=== PATIENT | male | born 1945 | race Caucasian/White ===

== ENCOUNTER → 2021-04-25 | Outpatient (CLI) | payer MEDICARE, OTHER ==
[2021-04-25 17:33] LABS: HEMOGLOBIN 13.3 gm/dl (14.0-17.5); RED BLOOD COUNT 4.52 M/UL (4.20-5.50); WHITE BLOOD COUNT 7.4 K/UL (4.5-11.0)
[2021-04-25 17:51] LABS: BUN/CREATININE RATIO 23 (0-10)
== END ==
LOC: LAB 16:27
PROVIDERS: Nurse Practitioner Family
DX: R05.3 Chronic cough (principal); R09.1 Pleurisy; E05.30 Thyrotoxicosis from ectopic thyroid tissue without thyrotoxic crisis or storm; E78.49 Other hyperlipidemia; E55.9 Vitamin D deficiency, unspecified
CPT/HCPCS: 36415; 71046; 80053; 80061; 84439; 84443; 85025

== ENCOUNTER → 2021-05-16 | Outpatient (CLI) | payer MEDICARE, OTHER | LOC: KOH-I 11:05 | DX: M54.2 Cervicalgia (principal); R22.1 Localized swelling, mass and lump, neck; E04.2 Nontoxic multinodular goiter | CPT/HCPCS: 76536 ==

== ENCOUNTER 2022-03-30 20:36 | Observation (INO) | payer MEDICARE, OTHER ==
[~2022-03-30] VITALS: Ht 172.7 cm; Wt 81.6 kg
[2022-03-30 21:38] LABS: RED BLOOD COUNT 4.72 M/UL (4.20-5.50)
[2022-03-30 21:46] LABS: BUN/CREATININE RATIO 13 (0-10)
[2022-03-31 07:01] LABS: BUN/CREATININE RATIO 18 (0-10)
[2022-03-31] MEDS ORDERED: FLAXSEED OIL1000 M1 PO (12:04)
[2022-03-31] MEDS ORDERED: B-121000 MCG PO (12:04)
[2022-03-31] MEDS ORDERED: VITAMIN B-6100 MG PO (12:05)
[2022-03-31] MEDS ORDERED: ASPIRIN EC81 MG PO (12:05)
[2022-03-31] MEDS ORDERED: VITAMIN B COMP1 EAC1 PO (12:06)
[2022-04-01 03:31] LABS: BUN/CREATININE RATIO 19 (0-10)
[2022-04-01 03:33] LABS: HEMOGLOBIN 12.3 gm/dl (14.0-17.5); RED BLOOD COUNT 3.94 M/UL (4.20-5.50); WHITE BLOOD COUNT 8.7 K/UL (4.5-11.0)
[2022-04-01] MEDS ORDERED: ATORVASTATIN CA10 MG PO (16:41)
== END 2022-04-01 17:41 | disposition home or self-care (01) ==
LOC: ER1 20:36 → M/S 23:58 → CDU 23:58 → M/S 23:58
PROVIDERS: Internal Medicine; Student in an Organized Health Care Education/Training Program; ADMIT Internal Medicine
DX: R55 Syncope and collapse (principal); N17.9 Acute kidney failure, unspecified; I45.10 Unspecified right bundle-branch block; E86.0 Dehydration; K21.9 Gastro-esophageal reflux disease without esophagitis; M19.019 Primary osteoarthritis, unspecified shoulder; Z88.0 Allergy status to penicillin; Z87.891 Personal history of nicotine dependence; Z98.890 Other specified postprocedural states; Z79.82 Long term (current) use of aspirin; Z79.899 Other long term (current) drug therapy
CPT/HCPCS: ECHO; 36415; 70450; 70551; 71275; 80048; 80053; 82550; 82553; 83036; 83735; 83880; 84100; 84484; 85025; 85610; 85730; 93005; 93306; 93880; 96372; 99285; G0378; J1650; Q9967